=== PATIENT | male | born 1950 | race Caucasian/White ===

== ENCOUNTER → 2016-06-29 | Outpatient (CLI) | payer MEDICARE ==
--- NOTE | 2016-06-29 09:04 | RAD ---
EXAM DESCRIPTION: Shoulder,Right 2 or More Views CLINICAL HISTORY: 66 yearsMale, SHOULDER PAIN COMPARISON: None. IMPRESSION: 3 views of right shoulder demonstrate subtle osteophyte formation along the inferior margin of the humeral head and glenoid. This is compatible with early degenerative change. The acromio clavicular joint is unremarkable. No dislocation or fracture. Electronically signed by: Pablo Denis MD 06/29/2016 9:03 AM [facility]
== END | disposition home or self-care (01) ==
LOC: RAD 07:19
PROVIDERS: ATTEND Orthopaedic Surgery
DX: M25.511 Pain in right shoulder (principal)

== ENCOUNTER → 2016-07-06 | Outpatient (CLI) | payer MEDICARE ==
--- NOTE | 2016-07-06 09:48 | MRI ---
Study: MRI of the Right Shoulder. 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 Comparison: None. Findings: Severe AC joint osteoarthritis with undersurface spurring measuring up to 2 mm. Type II acromion without downsloping. Full-thickness, full with supination tendon tearing with involvement of the anterior half of the infraspinatus tendon. Torn articular and mid substance tendon fibers are medially retracted by up to 4 cm and lie at the level of the AC joint line. Torn bursal surface fibers are retracted by 2.7 cm and lie at the lateral margin of the acromion. Subscapularis tendinosis with intermediate grade articular tearing superiorly. Teres minor tendon intact. Cystic changes anterior greater tuberosity. Mild atrophy and grade 1/2 fatty infiltration supraspinatus and infraspinatus muscle bellies. Long head biceps tendon flattened at the intertubercular groove with slight medial subluxation on 2 the lesser tuberosity. Tendinosis and longitudinal fissuring without transection. Circumferential labral degeneration. Mild to moderate glenohumeral joint arthritis. Thickening and edema inferior glenohumeral ligament which can be seen with adhesive capsulitis. Impression: Retracted full-thickness, full width supraspinatus tendon tearing with involvement of the anterior half infraspinatus tendon. Subscapularis tendinosis with intermediate grade articular sided tearing superiorly. Mild atrophy and grade 1/2 fatty infiltration supraspinatus and infraspinatus muscle bellies. Long head biceps tendinosis and longitudinal fissuring with early medial subluxation as above. Circumferential labral degeneration. Mild to moderate glenohumeral joint osteoarthritis. Adhesive capsulitis. Severe AC joint osteoarthritis. Electronically signed by: José Hamilton MD 07/06/2016 9:47 AM CDT
== END | disposition home or self-care (01) ==
LOC: MRI 08:00
PROVIDERS: ATTEND Orthopaedic Surgery
DX: M75.101 Unspecified rotator cuff tear or rupture of right shoulder, not specified as traumatic (principal)

== ENCOUNTER → 2016-12-11 | Outpatient (CLI) | payer MEDICARE | END | disposition home or self-care (01) | LOC: GMAJ 10:24 | PROVIDERS: ATTEND Family Medicine | DX: Z12.5 Encounter for screening for malignant neoplasm of prostate (principal) ==

== ENCOUNTER 2017-01-05 15:06 | Emergency (ER) | payer MEDICARE ==
--- NOTE | 2017-01-05 15:38 | ED.PDOC ---
History of Present Illness - General Chief Complaint: Abdominal Pain Stated Complaint: Diverticulitis flare Time Seen by Provider: 01/05/17 15:12 Information Source: patient, RN notes reviewed, Vital Signs reviewed Exam Limitations: no limitations - History of Present Illness Initial Comments: Patient comes in with c/o lower abdominal pain for the past 3-4 days. Feels the same as when he has had diverticulitis in the past. Pain is crampy and occasionally sharp, 6/10. No nausea or vomiting. Did have some diarrhea but now is "stopped up". + chills, no fever. Abdominal Pain Onset Location: RLQ, LLQ Pain Radiation: no radiation Quality: moderate, cramping, sharpness Timing/Duration: days - 3-4 Improving Factors: medication - Ibuprofen helps but goes away too quickly Worsening Factors: other - being upright Associated Symptoms: diarrhea, fever/chills Review of Systems - Review of Systems Constitutional: States: chills. Denies: fever, malaise Respiratory: States: no symptoms reported Cardiology: States: no symptoms reported Gastrointestinal/Abdominal: States: see HPI, abdominal pain, constipation, diarrhea. Denies: nausea, vomiting Musculoskeletal: States: no symptoms reported Skin: States: no symptoms reported Neurological: States: no symptoms reported Past Medical History (General) - Patient Medical History Hx Seizures: No Hx Stroke: No Hx Dementia: No Hx Asthma: No Hx of COPD: Yes Hx Cardiac Disorders: No Hx Congestive Heart Failure: No Hx Pacemaker: No Hx Hypertension: Yes Hx Thyroid Disease: No Hx Diabetes: No Hx Gastroesophageal Reflux: No Hx Renal Disease: No Hx Cancer: No Hx of HIV: No Hx Hepatitis C: No Hx MRSA: No - Vaccination History Hx Tetanus, Diphtheria Vaccination: No Hx Influenza Vaccination: Yes Hx Pneumococcal Vaccination: Yes - Social History Hx Tobacco Use: Yes Hx Chewing Tobacco Use: Yes Hx Alcohol Use: No Hx Substance Use: No Hx Substance Use Treatment: No Hx Depression: No Hx Physical Abuse: No Hx Emotional Abuse: No Hx Suspected Abuse: No Family Medical History - Family History Mother Family History: No Known Living Status: Cause of : heart failure Physical Exam - Physical Exam General Appearance: Alert, Comfortable, No apparent distress, Well Developed, Well Groomed, Well Hydrated, Well Nourished Neck: supple, normal inspection Respiratory: lungs clear, normal breath sounds, no respiratory distress, no accessory muscle use Cardiovascular/Chest: regular rate, rhythm, no gallop, no murmur Gastrointestinal/Abdominal: normal bowel sounds, soft, tenderness - RLQ and suprapubic w/o guarding or rebound Extremity: normal inspection Neurologic: alert, normal mood/affect, oriented x 3 Skin Exam: normal color, warm/dry Progress - Progress Progress: 01/05/17 17:27 Feeling better. Antibiotics infusing. Na is a little low @ 127. After IV antibiotics with give a saline bolus. - Results/Orders Results/Orders: Laboratory Tests 01/05/17 01/05/17 16:02 16:02 WBC 8.1 RBC 4.48 L Hgb 14.2 Hct 41.7 L MCV 93.1 MCH 31.6 H MCHC 34.0 RDW 12.7 Plt Count 266 MPV 7.5 Absolute Neuts (auto) 5.50 Absolute Lymphs (auto) 1.30 Absolute Monos (auto) 0.90 H Absolute Eos (auto) 0.30 Absolute Basos (auto) 0.10 Neutrophils % 67.3 Lymphocytes % 16.6 L Monocytes % 11.5 H Eosinophils % 3.3 Basophils % 1.3 Sodium 127 L Potassium 3.9 Chloride 94 L Carbon Dioxide 23 Anion Gap 13.9 BUN 11 Creatinine 0.69 BUN/Creatinine Ratio 15.9 Random Glucose 95 Serum Osmolality 254.4 L* Calcium 9.0 Total Bilirubin 0.3 AST 17 ALT 18 Alkaline Phosphatase 76 Serum Total Protein 7.9 Albumin 4.1 Globulin 3.8 H Albumin/Globulin Ratio 1.1 Departure - Departure Clinical Impression: Acute diverticulitis Time of Disposition: 18:21 Disposition: Discharge to Home or Self Care Condition: Good Departure Forms: ED Discharge - Pt. Copy, Patient Portal Self Enrollment Instructions: DI for Diverticulitis Diet: resume usual diet Activity: increase activity as tolerated Referrals: Kenroy Hernandez MD [Primary Care Provider] - 1-2 Weeks Prescriptions: Ciprofloxacin [Cipro] 500 mg PO BID #14 tab metroNIDAZOLE [Flagyl] 500 mg PO BID #14 tab Home Medications: Ambulatory Orders Albuterol Sulfate 0.083 % INH Q4H PRN 09/03/12 Lisinopril/Hctz 20-12.5 mg [Zestoretic 20-12.5 mg] 1 ea PO DAILY 09/03/12 Albuterol Sulfate [Proair Hfa] 2 puff IN PRN PRN 09/26/15 Arformoterol Tartrate [Brovana] 15 mcg IN BID 09/26/15 Bifidobacterium Infantis [Align] 4 mg PO DAILY 09/26/15 Polyethylene Glycol 3350 [Miralax] 17 gm PO DAILY 09/26/15 Tiotropium [place] Monohydrate [Spiriva Respimat] 1 puff IN DAILY 09/26/15 Wheat Dextrin [Benefiber] 1 tab PO DAILY 09/26/15 raNITIdine HCL [Zantac] 150 mg PO DAILY 09/26/15 Ciprofloxacin [Cipro] 500 mg PO BID #20 tab 01/06/16 Metronidazole 500 mg PO Q8H #30 tab 01/06/16 Ciprofloxacin [Cipro] 500 mg PO BID #14 tab 01/05/17 metroNIDAZOLE [Flagyl] 500 mg PO BID #14 tab 01/05/17
[2017-01-05] MEDS ORDERED: KETOROLAC TROMETHAMINE INJ 30 MG/ML VIAL IV ONE (15:43)
[2017-01-05] MEDS ORDERED: levoFLOXacin 500MG IV 500 MG in PREMIX BAG 1 BAG IVPB ONE (15:43)
[2017-01-05] MEDS ORDERED: metroNIDAZOLE IV PREMIX 500MG 500 MG in PREMIX BAG 1 BAG IVPB ONE (15:43)
[2017-01-05] MEDS ORDERED: metroNIDAZOLE IV PREMIX 500MG 100 ML IVPB ONE (16:02)
[2017-01-05] MEDS ORDERED: levoFLOXacin 500MG IV 100 ML IVPB ONE (16:02)
[2017-01-05 17:06] VITALS: TEMP 98.7; O2SAT 94
[2017-01-05] MEDS ORDERED: SODIUM CHLORIDE 0.9% 1000ML 1,000 ML IVS ONE (17:32)
[2017-01-05 18:25] VITALS: BP 139/81
[2017-01-06] MEDS ORDERED: SODIUM CHLORIDE 0.9% 1000ML 1,000 ML ONE (09:21)
== END 2017-01-05 18:37 | disposition home or self-care (01) ==
LOC: ER 15:06
DX: K57.92 Diverticulitis of intestine, part unspecified, without perforation or abscess without bleeding (principal); J44.9 Chronic obstructive pulmonary disease, unspecified; Z87.891 Personal history of nicotine dependence
CPT/HCPCS: 36415; 80053; 85025; J1885; J1956; J3490

== ENCOUNTER → 2017-01-23 | Outpatient (CLI) | payer MEDICARE ==
--- NOTE | 2017-01-24 17:20 | US ---
EXAM DESCRIPTION: Carotid Duplex: Ultrasound CLINICAL HISTORY: CAROTID BRUIT COMPARISON: None. TECHNIQUE: Transcutaneous scanning utilizing 2-dimensional and Doppler modes to evaluate the bilateral carotid systems and vertebral arteries. Percentage of diameter of stenosis or no stenosis recorded will be based upon NASCET criteria. FINDINGS: Peak systolic/end diastolic (CM-Sec) CCA Right 66/10 Left 82/21. ICA Right proximal 57/21, distal 74/24. Left proximal 38/12, Distal 67/22. Vertebral Right 44/10 Left 39/10. ECA (PS Only) Right 64 left 61. ICA/CCA peak systolic ratio: Right 1.1 Left 0.8 ICA/CCA end diastolic ratio: Right 2.5 Left 1.0 Vertebral arteries: antegrade flow. Comments Comments: Prominent atherosclerotic calcifications in the bilateral common carotid bulbs and proximal ICAs. Area stenosis of the right CCA bulb is 41% with diameter stenosis identical. Area stenosis of the right proximal ICA 54% with diameter stenosis 36%. Area stenosis of left CCA bulb 34% with diameter stenosis 51%. Area stenosis of the proximal left ICA 20% with identical diameter stenosis. IMPRESSION: 1. Doppler evaluation of the bilateral carotid systems and vertebral arteries shows no hemodynamically significant stenoses. 2. Moderate amount of calcified plaque seen in the carotid arteries bilaterally. Bilateral vertebral arteries showed antegrade-cephalad flow. Electronically signed by: Bola Garcia MD 01/24/2017 5:19 PM CDT
== END | disposition home or self-care (01) ==
LOC: US 08:49
PROVIDERS: ATTEND Family Medicine
DX: I65.23 Occlusion and stenosis of bilateral carotid arteries (principal)

== ENCOUNTER 2017-08-15 16:12 | Inpatient (IN) | payer MEDICARE ==
--- NOTE | 2017-08-15 16:13 | HP ---
SUPERVISING PHYSICIAN: Kenroy Hernandez M.D. CHIEF COMPLAINT: Shortness of breath. HISTORY OF PRESENT ILLNESS: This is a 67 year-old male patient who has had approximately 5 days of increased shortness of breath. He has end stage chronic obstructive pulmonary disease on chronic oxygen. He was seeing his primary care physician, Dr. Hernandez, in clinic. During his office visit he was visibly tachypneic. His heart rate was 112, respiratory rate 24 to 28. His O2 sat was 90% on 3 liters nasal cannula. Due to his end stage COPD and acute exacerbation, I was called for direct admission for aggressive treatment for COPD exacerbation. CBC at the clinic showed WBCs of 7.8 with hemoglobin 14.4, hematocrit 39. Chest x-ray showed emphysematous lungs. PAST MEDICAL HISTORY: 1. End stage chronic obstructive pulmonary disease, oxygen dependent at home. 2. Hypertension. 3. Diverticulitis. 4. Anxiety and depression. PAST SURGICAL HISTORY: 1. Appendectomy. 2. Cholecystectomy. 3. Open reduction and internal fixation of the left elbow. 4. Umbilical hernia repair. 5. Tonsillectomy and adenoidectomy. OUTPATIENT MEDICATIONS: 1. Spiriva. 2. Aspirin. 3. Lipitor. 4. Lisinopril Hydrochlorothiazide. 5. Brovana. 6. MiraLAX. 7. Align. 8. Alprazolam. 9. Albuterol neb treatments. ALLERGIES: MORPHINE SULFATE. FAMILY HISTORY: Positive for coronary artery disease, heart disease and rheumatic heart disease. SOCIAL HISTORY: He is retired. He is . He has 3 children. He smokes approximately 1 pack of cigarettes per day. He previously smoked 2 packs per day and has an 80+ pack year smoking history. He drinks approximately a 6 pack of beer daily, although he has not had any beer in the last 2 days. He denies any illicit drug use. REVIEW OF SYSTEMS: Positive for fatigue. Negative for fever or weight changes. HEENT: Positive for seasonal allergies and rhinorrhea. Negative for vision changes, ear pain or sore throat. RESPIRATORY: Positive for coughing, wheezing, shortness of breath. His dyspnea is even at rest. CARDIOVASCULAR: Negative for chest pain, palpitations or tachycardia. GASTROINTESTINAL: Negative for abdominal pain, nausea, vomiting, diarrhea or constipation. GENITOURINARY: Negative for hematuria, dysuria or polyuria. SKIN: Negative for lesions or rashes. NEUROLOGIC: Negative for dizziness, headaches or seizures. PHYSICAL EXAMINATION: VITAL SIGNS: Temperature 97.5, heart rate 100, blood pressure 109/77, respiratory rate 22, O2 sat is 96% on 3 liters nasal cannula. GENERAL: This is a 67 year-old male patient who is sitting up in his hospital bed. He is in moderate respiratory distress. HEENT: Normocephalic and atraumatic. Pupils are equal and reactive. Oropharynx is clear. Oral mucous membranes are moist. RESPIRATORY: He is tachypneic. He has retractions with coarse breath sounds in the apices. Decreased breath sounds throughout and an expiratory wheeze in the right upper lobe. CARDIOVASCULAR: Regular to tachycardic rate, regular rhythm. GASTROINTESTINAL: Abdomen is soft, nondistended, non-tender. Bowel sounds are positive. EXTREMITIES: No cyanosis, clubbing or edema. NEUROLOGIC: He is awake, alert and oriented times three. LABORATORY: CBC is as per the History of Present Illness. His lab in the hospital is sodium 120, potassium 4.1, chloride 83, carbon dioxide 27, BUN 10, creatinine 0.55. Serum osmolality 241.3, magnesium 2. Liver enzymes are negative. All other labs and films have been reviewed via the EMR. ASSESSMENT: 1. End stage chronic obstructive pulmonary disease with acute exacerbation, with a respiratory rate of 24, heart rate 112 and O2 sat 90% on 3 liters nasal cannula while at his primary care physician's office today. He is oxygen dependent at home and he is a chronic smoker. 2. Hyponatremia. 3. Hypochloridemia. 4. Hypertension. 5. Tobacco abuse, 2 packs daily for approximately 40 years. He has decreased it to 1 pack a day in the last several years. 6. Chronic ETOH use. 7. Anxiety and depression. PLAN: Will admit the patient for exacerbation of chronic obstructive pulmonary disease. I have restarted his home medications. He will have p.r.n. and scheduled breathing treatments. I have given him some IV steroids and will taper those as he responds to treatment. He is also started on Rocephin as well as some Mucinex. I have gotten a blood culture and a sputum culture as well as a chest x-ray and lab in the morning. Will do aggressive pulmonary hygiene. I also started him on a PPI for ulcer prophylaxis and Lovenox for DVT prophylaxis. I have also started him on fluid restrictions. We had a long discussion about smoking cessation and have encouraged him strongly to quit. Otherwise we will continue to monitor the patient closely and follow as needed. #[id number] [facility]
[2017-08-15] MEDS ORDERED: ALBUTEROL SULFATE 2.5 MG/3 ML VIAL NEB PRN (17:35)
[2017-08-15] MEDS ORDERED: methylPREDNISolone SODIUM SUC 125 MG/2 ML VIAL IV ONE (17:38)
[2017-08-15] MEDS ORDERED: PANTOPRAZOLE SODIUM IV 40 MG VIAL IV SCH (18:00)
[2017-08-15] MEDS ORDERED: ENOXAPARIN SODIUM 40 MG/0.4 ML SYG SUBCU SCH (18:00)
[2017-08-15] MEDS ORDERED: SODIUM CHL 0.9% 50ML MIN-BAG+ 50 ML IVPB ONE (18:13)
[2017-08-15] MEDS ORDERED: cefTRIAXone SODIUM 1 GM VIAL ONE (18:13)
[2017-08-15] MEDS: SODIUM CHLORIDE 0.9% 1000ML 1,000 ML IVS PRN (18:17)
[2017-08-15] MEDS: IV SET AND CAP CHANGE INJ INJ SCH (18:18)
[2017-08-15] MEDS: cefTRIAXone SODIUM 1 GM in SODIUM CHL 0.9% 50ML MIN-BAG+ 50 ML IVPB SCH (18:19)
[2017-08-15] MEDS ORDERED: ALPRAZolam 0.25 MG TAB PO PRN (19:13)
[2017-08-15] MEDS ORDERED: ARFORMOTEROL TARTRATE 15 MCG/2 ML NEB NEB ONE (19:14)
[2017-08-15] MEDS: ARFORMOTEROL TARTRATE 15 MCG/2 ML NEB NEB SCH (20:00)
[2017-08-15] MEDS: guaiFENesin ER TAB 600 MG TAB PO SCH (21:02)
[2017-08-15] MEDS: ATORVASTATIN 10 MG TAB PO SCH (21:02)
[2017-08-15] MEDS: SODIUM CHLORIDE 0.9% (FLUSH) 10 ML SYG IV SCH (21:05)
[2017-08-15] MEDS: TEMAZEPAM 15 MG CAP PO PRN (21:09)
[2017-08-15] MEDS: IPRATROPIUM/ALBUTEROL 3 ML VIAL INH SCH (21:12)
[2017-08-16] MEDS: SODIUM CHLORIDE 0.9% 1000ML 1,000 ML IVS PRN ×3 (02:52→18:47)
[2017-08-16] MEDS: methylPREDNISolone SODIUM SUC 125 MG/2 ML VIAL IV SCH ×2 (06:16→13:37)
--- NOTE | 2017-08-16 07:00 | RAD ---
Chest 2 view on 08/16/2017 CLINICAL INDICATION: COPD COMPARISON: 08/15/2017 FINDINGS: Emphysematous changes of the lungs are noted. Vascular calcification is noted in the aorta. The lungs are otherwise clear. Cardiac, hilar and mediastinal contours are within normal limits. Pulmonary vascularity is within normal limits. IMPRESSION: Emphysema with no acute disease. Electronically signed by: Ernie Garibay 08/16/2017 6:59 AM CDT
[2017-08-16] MEDS: IPRATROPIUM/ALBUTEROL 3 ML VIAL INH SCH ×4 (07:13→20:00)
[2017-08-16] MEDS ORDERED: ENOXAPARIN SODIUM 40 MG/0.4 ML SYG SUBCU ONE (08:02)
[2017-08-16] MEDS ORDERED: cefTRIAXone SODIUM 1 GM VIAL ONE (08:08)
[2017-08-16] MEDS ORDERED: SODIUM CHL 0.9% 50ML MIN-BAG+ 50 ML IVPB ONE (08:08)
[2017-08-16] MEDS: ARFORMOTEROL TARTRATE 15 MCG/2 ML NEB NEB SCH ×2 (08:17→20:00)
[2017-08-16] MEDS: ASPIRIN (CHEWABLE) 81 MG TAB PO SCH (08:34)
[2017-08-16] MEDS: POLYETHYLENE GLYCOL 3350 17 GM PCKT PO SCH (08:34)
[2017-08-16] MEDS: guaiFENesin ER TAB 600 MG TAB PO SCH ×2 (08:34→21:22)
[2017-08-16] MEDS: SODIUM CHLORIDE 0.9% (FLUSH) 10 ML SYG IV SCH (08:35)
[2017-08-16] MEDS: NON-FORMULARY MEDICATION 1 EA MIS (Tiotropium Bromide Monohydrate [Spiriva Respimat] 2 PUF INH SCH (08:37)
[2017-08-16] MEDS ORDERED: LISINOPRIL PO SCH (09:00)
[2017-08-16] MEDS ORDERED: [UNRECOGNIZED DRUG - OTHER] PO SCH (09:00)
[2017-08-16] MEDS ORDERED: HYDROCHLOROTHIAZIDE PO SCH (09:00)
[2017-08-16] MEDS ORDERED: LISINOPRIL PO PRN (15:16)
[2017-08-16] MEDS ORDERED: HYDROCHLOROTHIAZIDE PO PRN (15:16)
[2017-08-16] MEDS ORDERED: [UNRECOGNIZED DRUG - OTHER] PO PRN (15:16)
[2017-08-16] MEDS: cefTRIAXone SODIUM 1 GM in SODIUM CHL 0.9% 50ML MIN-BAG+ 50 ML IVPB SCH (17:52)
--- NOTE | 2017-08-16 20:37 | PN ---
DATE: 08/16/17 SUPERVISING PHYSICIAN: Kenroy Hernandez M.D. SUBJECTIVE: The patient is sitting up in his hospital bed watching television. He feels much improved yesterday, much less shortness of breath with some coughing. He still gets short of breath but that is not unusual for him. Again , we discussed smoking cessation and he is willing to try it this time. OBJECTIVE: VITAL SIGNS: He is afebrile, heart rate 102, blood pressure 148/72, respiratory rate 20, O2 sat is 96% on 2 liters nasal cannula. RESPIRATORY: Diminished breath sounds throughout. He does have a few expiratory wheezing in the apices but much improved since yesterday. CARDIAC: Regular to tachycardic rate, regular rhythm. NEUROLOGIC: He is awake, alert and oriented times three. LABORATORY: Sodium has improved to 123 with potassium 4.3, chloride 89, carbon dioxide 25, anion gap 13.3 with BUN 10, creatinine 0.58, glucose 134, serum osmolality 248.8. Liver enzymes are within normal limits. WBCs are 3.6 with hemoglobin 14.2, hematocrit 40.5, neutrophils 82.3%. Chest x-ray shows emphysematous lungs. All other labs and films have been reviewed via the EMR. ASSESSMENT: 1. End stage chronic obstructive pulmonary disease with acute exacerbation. He is hypercapnic and on admission he had a respiratory rate of 24, heart rate of 112, O2 sat of 90% on 3 liters nasal cannula. He is oxygen dependent and is a chronic smoker. 2. Hyponatremia that has slightly improved. 3. Hypochloridemia that has slightly improved. 4. Hypertension. 5. Tobacco abuse, 80+ pack year history. Smokes approximately 1 pack of cigarettes per day in the last several years. 6. Chronic ETOH use. 7. Anxiety and depression. PLAN: We will continue present supportive care. I will order some routine labs in the morning. I have decreased his IV steroids. Will continue his Rocephin. His IV fluids have been discontinued. Again, encourage smoking cessation as well as good pulmonary hygiene. We will continue to monitor the patient closely and follow as needed. Dr. Hernandez is the collaborating physician available for consultation. #[id number] [facility]
[2017-08-16] MEDS: ATORVASTATIN 10 MG TAB PO SCH (21:22)
[2017-08-16] MEDS: ENOXAPARIN SODIUM 40 MG/0.4 ML SYG SUBCU SCH (21:22)
[2017-08-16] MEDS: TEMAZEPAM 15 MG CAP PO PRN (21:22)
[2017-08-16] MEDS: methylPREDNISolone SODIUM SUC 40 MG/ML VIAL IV SCH (22:08)
[2017-08-17] MEDS: methylPREDNISolone SODIUM SUC 40 MG/ML VIAL IV SCH ×4 (06:04→23:59)
[2017-08-17] MEDS: NON-FORMULARY MEDICATION 1 EA MIS (Tiotropium Bromide Monohydrate [Spiriva Respimat] 2 PUF INH SCH (07:14)
[2017-08-17] MEDS: ARFORMOTEROL TARTRATE 15 MCG/2 ML NEB NEB SCH ×2 (07:14→20:25)
[2017-08-17] MEDS: IPRATROPIUM/ALBUTEROL 3 ML VIAL INH SCH ×4 (07:17→20:25)
[2017-08-17] MEDS: POLYETHYLENE GLYCOL 3350 17 GM PCKT PO SCH (09:13)
[2017-08-17] MEDS: guaiFENesin ER TAB 600 MG TAB PO SCH ×2 (09:13→21:06)
[2017-08-17] MEDS: ASPIRIN (CHEWABLE) 81 MG TAB PO SCH (09:13)
[2017-08-17] MEDS: LISINOPRIL 10 MG TAB PO SCH (12:59)
[2017-08-17] MEDS: hydroCHLOROthiazide 25 MG TAB PO SCH (12:59)
--- NOTE | 2017-08-17 16:58 | PN ---
DATE: 08/17/17 SUPERVISING PHYSICIAN: Nicko Tinsley M.D. SUBJECTIVE: The patient reports that he feels much better and had less work of breathing since admission. He had some issues with esophageal spasms after lunch and had some shortness of breath related to this. He has reported no chest pains. Has remained afebrile. OBJECTIVE: VITAL SIGNS: Temperature 97.6, pulse 94, blood pressure 159/77, respirations 20, satting 99% on nasal cannula at 2 liters at rest. I's and O's show a negative balance of 280 with 3145 in, 3425 out. Weight is 80.1 kg. CHEST: Lung sounds are significantly decreased throughout all portillo with slight expiratory wheezing noted. No rales or rhonchi. HEART: Regular rate and rhythm. ABDOMEN: Soft, non-tender. Positive bowel sounds. NEUROLOGIC: He is alert and oriented times three. LABORATORY: White count 7,200, hemoglobin 12.7, hematocrit 35.8, platelet count 266,000. Differential does show a slight left shift. Chemistries today show a persistent hyponatremia but improving at 129, potassium 4.2, BUN 13, creatinine 0.67, blood sugar 123, magnesium 2.1, calcium 8.8. MICROBIOLOGY: Blood cultures remain negative at 24 hours. Sputum culture showed normal traci at 24 hours. RADIOLOGY: No additional radiographic studies were completed today. ASSESSMENT: 1. End stage chronic obstructive pulmonary disease with an acute exacerbation requiring corticosteroids and aggressive pulmonary hygiene. 2. Hyponatremia, improved probably secondary to Hydrochlorothiazide administration. 3. Hypochloridemia due to #1. 4. Hypertension, stable. 5. Tobacco abuse, 80+ pack year history, currently smoking 1 pack per day for the last several years. Again encouraged to stop smoking. 6. Chronic alcohol usage, encouraged to stop drinking. 7. Anxiety and depression. PLAN: Will continue with current plan of care except given that he continues to show decreased breath sounds throughout and is wheezing, I will increase his steroid regimen with the same dosing but decrease from every 8 hours to every 6 hours for another 24 hours. He remains on Rocephin but no obvious signs of pneumonia. He is saline locked. I discussed with him smoking cessation once again and offered nicotine patch as needed which he refuses at this point. Will anticipate at least 24 to 48 hours of continued aggressive management with pulmonary hygiene and corticosteroids. Until clinically stable, continue to monitor and treat appropriately. [facility][id number] [facility]
[2017-08-17] MEDS ORDERED: SODIUM CHL 0.9% 50ML MIN-BAG+ 50 ML IVPB ONE (17:31)
[2017-08-17] MEDS ORDERED: cefTRIAXone SODIUM 1 GM VIAL ONE (17:31)
[2017-08-17] MEDS: cefTRIAXone SODIUM 1 GM in SODIUM CHL 0.9% 50ML MIN-BAG+ 50 ML IVPB SCH (17:36)
[2017-08-17] MEDS: TEMAZEPAM 15 MG CAP PO PRN (21:06)
[2017-08-17] MEDS: ATORVASTATIN 10 MG TAB PO SCH (21:06)
[2017-08-17] MEDS: ENOXAPARIN SODIUM 40 MG/0.4 ML SYG SUBCU SCH (21:07)
[2017-08-17] MEDS: SODIUM CHLORIDE 0.9% (FLUSH) 10 ML SYG IV PRN ×2 (21:07→23:59)
[2017-08-18] MEDS: SODIUM CHLORIDE 0.9% (FLUSH) 10 ML SYG IV PRN ×2 (06:22→20:39)
[2017-08-18] MEDS: methylPREDNISolone SODIUM SUC 40 MG/ML VIAL IV SCH ×3 (06:23→20:40)
[2017-08-18] MEDS: ARFORMOTEROL TARTRATE 15 MCG/2 ML NEB NEB SCH ×2 (08:20→20:00)
[2017-08-18] MEDS: NON-FORMULARY MEDICATION 1 EA MIS (Tiotropium Bromide Monohydrate [Spiriva Respimat] 2 PUF INH SCH (08:21)
[2017-08-18] MEDS: IPRATROPIUM/ALBUTEROL 3 ML VIAL INH SCH ×4 (08:21→20:00)
[2017-08-18] MEDS: hydroCHLOROthiazide 25 MG TAB PO SCH (08:31)
[2017-08-18] MEDS: LISINOPRIL 10 MG TAB PO SCH (08:31)
[2017-08-18] MEDS: guaiFENesin ER TAB 600 MG TAB PO SCH ×2 (08:31→20:39)
[2017-08-18] MEDS: ASPIRIN (CHEWABLE) 81 MG TAB PO SCH (08:32)
[2017-08-18] MEDS: POLYETHYLENE GLYCOL 3350 17 GM PCKT PO SCH (08:32)
[2017-08-18] MEDS ORDERED: cefTRIAXone SODIUM 1 GM VIAL ONE (16:09)
[2017-08-18] MEDS ORDERED: SODIUM CHL 0.9% 50ML MIN-BAG+ 50 ML IVPB ONE (16:09)
--- NOTE | 2017-08-18 17:11 | PN ---
DATE: 08/18/17 SUPERVISING PHYSICIAN: Nicko Tinsley M.D. SUBJECTIVE: The patient feels about 75% back to baseline respiratory status. He remains afebrile. Continues with a cough that is nonproductive. OBJECTIVE: VITAL SIGNS: Afebrile with temperature 97.5, pulse 89, blood pressure 157/83, respirations 16, satting 97% on nasal cannula at rest. I's and O's show a negative balance of 1092 with 108 in, 1200 out. Weight is 80.2 kg. CHEST: Lung sounds continue to be diminished throughout but much better in comparison to yesterday with no obvious continued wheezing, rales or rhonchi. HEART: Regular rate and rhythm. ABDOMEN: Soft, non-tender. Positive bowel sounds. NEUROLOGIC: He is alert and oriented times three. LABORATORY: White count today 7,200, hemoglobin 13.5, hematocrit 34.4, platelet count 229,000. Differential shows a mild left shift. Chemistries show improved sodium of 130 with potassium 3.9, BUN 15, creatinine 0.46, glucose 119, calcium 9.2. Serum osmolality is up to 262. MICROBIOLOGY: Blood cultures remain negative at 48 hours. Sputum culture showed normal traci at 48 hours as finalized. RADIOLOGY: No additional radiographic studies today. ASSESSMENT: 1. End stage chronic obstructive pulmonary disease with an acute exacerbation requiring corticosteroids and aggressive pulmonary hygiene with patient showing slow clinical improvement. 2. Hyponatremia, improving, likely chronic due to Hydrochlorothiazide administration. 3. Hypertension, stable. 4. Tobacco abuse, 80+ pack year history, currently smoking 1 pack per day for the last several years. He is again encouraged to stop smoking. 5. Chronic alcohol usage, encouraged to stop drinking. 6. Anxiety and depression. PLAN: As the patient is showing some clinical response, will continue with current plan at this point with steroids with change in regimen to every 12 hours with anticipation of changing him to p.o. medications in the morning if clinically stable. Will continue with Rocephin but he has no obvious signs of pneumonia. Continue to monitor and manage as needed. Again, he has been encouraged to stop smoking. Will anticipate hopefully being able to discharge tomorrow. Until then, continue to monitor and treat appropriately. #[id number] [facility]
[2017-08-18] MEDS: cefTRIAXone SODIUM 1 GM in SODIUM CHL 0.9% 50ML MIN-BAG+ 50 ML IVPB SCH (17:40)
[2017-08-18] MEDS: IV SET AND CAP CHANGE INJ INJ SCH (17:40)
[2017-08-18] MEDS: ATORVASTATIN 10 MG TAB PO SCH (20:39)
[2017-08-18] MEDS: ENOXAPARIN SODIUM 40 MG/0.4 ML SYG SUBCU SCH (20:39)
[2017-08-18] MEDS: TEMAZEPAM 15 MG CAP PO PRN (21:22)
[2017-08-19 06:43] VITALS: O2SAT 96
[2017-08-19] MEDS ORDERED: predniSONE 20 MG TAB ONE (06:58)
[2017-08-19] MEDS: POLYETHYLENE GLYCOL 3350 17 GM PCKT PO SCH (08:24)
[2017-08-19] MEDS: hydroCHLOROthiazide 25 MG TAB PO SCH (08:25)
[2017-08-19] MEDS: guaiFENesin ER TAB 600 MG TAB PO SCH (08:25)
[2017-08-19] MEDS: LISINOPRIL 10 MG TAB PO SCH (08:25)
[2017-08-19] MEDS: ASPIRIN (CHEWABLE) 81 MG TAB PO SCH (08:25)
[2017-08-19] MEDS: ARFORMOTEROL TARTRATE 15 MCG/2 ML NEB NEB SCH (08:37)
[2017-08-19] MEDS: IPRATROPIUM/ALBUTEROL 3 ML VIAL INH SCH (08:37)
[2017-08-19] MEDS: NON-FORMULARY MEDICATION 1 EA MIS (Tiotropium Bromide Monohydrate [Spiriva Respimat] 2 PUF INH SCH (08:38)
[2017-08-19] MEDS ORDERED: SODIUM CHLORIDE 0.9% (FLUSH) 10 ML SYG IV SCH (09:00)
[2017-08-19] MEDS ORDERED: predniSONE 20 MG TAB PO SCH (09:00)
[2017-08-19 10:20] VITALS: BP 125/80; TEMP 98
--- NOTE | 2017-08-26 09:56 | DS ---
SUPERVISING PHYSICIAN: Sunny Abarca MD DISCHARGE DIAGNOSES: 1. End stage chronic obstructive pulmonary disease with acute exacerbation requiring aggressive corticosteroids administration along with pulmonary hygiene with patient showing slow clinical improvement.. 2. Hyponatremia likely chronic from Hydrochlorothiazide administration showing to be improving.. 3. Hypertension. 4. Tobacco abuse, 80+ pack year history. Smokes approximately 1 pack of per day for the last several years, again encouraged to stop smoking. 5. Chronic alcohol use, encouraged to stop drinking. . 6. Anxiety and depression. REASON FOS HOSPITALIZATION: Laya Wiley is a 67 year-old male patient who has had approximately 5 days of increased shortness of breath. He has end-stage chronic obstructive pulmonary disease and a patient with chronic oxygen needs. He was seeing his primary care physician, Dr. Hernandez, on the date of admission. While in his office he was visibly tachypneic. His heart rate was 112, respiratory rate 20 to 28. His O2 saturation showing 90% on 3 liters nasal cannula. Due to his end-stage chronic obstructive pulmonary disease and acute exacerbation, he was sent to the hospital for direct admission for for aggressive treatment for chronic obstructive pulmonary disease exacerbation. His initial workup in the clinic showed white count of 7.8. Chest x-ray showed emphysematous changes. He was admitted in stable condition. LABORATORY STUDIES: White count on admission was 3,600 with hemoglobin of 14.2 and hematocrit 40.5. On discharge, white count was 7,200, hemoglobin 13.5 and hematocrit 38.4 with a platelet count of 229,000, differential did show a left shift. Blood gas analysis on admission showed a pH of 7.36, PCO2 of 54, PO2 of 85, bicarb 29, saturation 98% on 3-liter nasal cannula at rest. Chemistries showed a significant hyponatremia on admission of 120. After treatment and prior to discharge, it normalized to baseline of 128. Potassium normal at 3.8. Renal function showed BUN of 16. At discharge, creatinine of 0.5. Serum osmolality on admission was low at 241, prior to discharge had gone up to 259 to 262. Calcium was normal at 9.1, magnesium normal at 2.1. Liver functions all within normal limits. MICROBIOLOGY: Sputum culture showed normal traci at 48 hours. Blood cultures remained negative at 5 days. RADIOLOGY: Chest x-ray on admission and per radiology interpretation showed emphysema with no acute disease. HOSPITAL COURSE: Mr. Cristina was admitted on 08/15/17 directly fro the clinic as noted above for exacerbation of his chronic obstructive pulmonary disease. He was initiated on aggressive pulmonary hygiene along with aggressive medication regiment to include q.i.d. Duoneb treatment as well as Solu-Medrol and started on Rocephin. He was slowly titrated off of the IV Solu- Medrol to a p.o. dose prior to discharge and was showing to improvement and back to near baseline respiratory status prior to discharge. I did discuss with him his end-state disease process and recommended he consider a hospice consultation which he was in agreement to. On day of discharge the patient was showing to be clinically stable, on 02 that he normally wears and p.o. prednisone. Therefore, he was discharged to have continuation of his treatment in an outpatient setting. PLAN: Mr. Cristina was discharged with instructions to followup with Dr. Hernandez the in 7 to 10 days. He was to resume his home medications as instructed and take all new medications as directed. He was once again encouraged to stop smoking and decrease his alcohol consumption. He was told to utilize his oxygen as previous and warned not to wear his oxygen when he was smoking. He was instructed to return to the hospital should he have worsening of symptoms. Discharge diet: regular as tolerated. Activities: Increase as tolerated. Medications at discharge include: 1. Cefdinir 300 mg twice a day, #12. 2. Prednisone taper 10 mg, 4 tablets for three days, 3 tablets for three days and 2 tablets until gone for a total of 25 tablets. 3. Restoril 15 mg as needed for insomnia, #10. I did discuss with him again his disease process being at end-stage chronic obstructive pulmonary disease in regards to hospice care which he is fully ready to do and will followup with Dr. Hernandez in regards to consultation with hospice care for end-stage chronic obstructive pulmonary disease. CONDITION ON DISCHARGE: Stable and improved. #[id number] [facility]
== END 2017-08-19 11:34 | disposition home or self-care (01) | DRG 191 ==
LOC: MS 16:12
PROVIDERS: ADMIT Nurse Practitioner Acute Care; ATTEND Nurse Practitioner Family
DX: J44.1 Chronic obstructive pulmonary disease with (acute) exacerbation (principal); E87.1 Hypo-osmolality and hyponatremia; I10 Essential (primary) hypertension; F41.9 Anxiety disorder, unspecified; F32.9 Major depressive disorder, single episode, unspecified; Z79.82 Long term (current) use of aspirin; Z88.5 Allergy status to narcotic agent; Z88.2 Allergy status to sulfonamides; F17.210 Nicotine dependence, cigarettes, uncomplicated; F10.20 Alcohol dependence, uncomplicated; Z99.81 Dependence on supplemental oxygen; E87.8 Other disorders of electrolyte and fluid balance, not elsewhere classified

== ENCOUNTER 2017-08-29 07:27 | Emergency (ER) | payer MEDICARE ==
[2017-08-29] MEDS ORDERED: HYDROcodone 5MG/APAP 325MG 1 EA TAB PO ONE (07:41)
[2017-08-29 07:44] VITALS: TEMP 97.3
--- NOTE | 2017-08-29 08:42 | RAD ---
EXAM DESCRIPTION: Chest,2 Views CLINICAL HISTORY: fall yesterday with left post lateral rib pain COMPARISON: Chest radiograph dated August 16, 2017 TECHNIQUE: PA/lateral FINDINGS: Cardiomediastinal silhouette and pulmonary vascularity are within normal limits. Lung volumes are hyperinflated, compatible COPD. Lungs are clear without focal consolidative infiltrates. Bilateral costophrenic angles are sharp. No pneumothorax. Mild degenerative changes of the thoracic spine. Mild prominence of the manubriosternal joint space. Otherwise, no radiographic evidence for displaced acute fractures of the visualized osseous structures of the thorax. IMPRESSION: 1. No radiographic evidence for acute cardiopulmonary process. 2. COPD. Electronically signed by: Ariel Horan MD 08/29/2017 8:40 AM CDT
--- NOTE | 2017-08-29 08:43 | RAD ---
EXAM DESCRIPTION: XR RIBS 2 VIEWS UNILATERAL CLINICAL HISTORY: fall yesterday with left post lateral rib pain COMPARISON: None FINDINGS: Left rib series was acquired. No acute displaced fracture demonstrated of the left ribs. Cardiac silhouette and pulmonary vascularity are within normal limits. Visualized lungs are clear. IMPRESSION: No radiographic evidence for acute displaced fracture of the imaged left ribs. Electronically signed by: Ariel Horan MD 08/29/2017 8:42 AM CDT
--- NOTE | 2017-08-29 09:08 | ED.PDOC ---
History of Present Illness - General Chief Complaint: Respiratory Problem Stated Complaint: shortness of breath,rib pain Time Seen by Provider: 08/29/17 07:39 Source: patient Exam Limitations: no limitations - History of Present Illness Initial Comments: the patient is a 67-year-old male presenting to the emergency room secondary to left-sided chest pain after a fall yesterday evening. The patient has a long-standing history of COPD and was just released recently for a COPD exacerbation from this hospital about 4 days ago. The patient has a long- standing history of orthostasis and syncopal and near syncopal episodes from this. Yesterday the patient woke up from a nap to his dog barking. His dog had the UPS man cornered and he jumped up to restrain the dog. As he was going back in the house in the kitchen he started to pass out and fell forward and hit the left anterior lateral chest on the kitchen counter and managed to somewhat lowered himself to the ground before passing out. He apparently woke a few minutes later. Since that time he has been having left lateral posterior chest pain with breathing and any movement of his chest or left shoulder. He is not having shoulder pain. No syncope or near syncope since. He does feel short of breath due to the pain. His oxygen saturations are 97% on room air. There is no crepitus around the wall of the chest. There is no bruising of the wall of the chest. No evidence of any muscle tear. He is exquisitely tender to palpation over the lateral border of the left latissimus dorsi muscle. He is moderately uncomfortable to palpation over the anterior chest wall where he had the counter. Breath sounds are symmetrical and he is not having any difficulty breathing moving air. Lungs are clear. He does get obvious muscle spasm with taking deep breaths. No wheezes. He is alert and oriented and fairly anxious. He is obviously uncomfortable. Timing/Duration: 24 hours Severity: moderate Improving Factors: immobilization Worsening Factors: movement Associated Symptoms: chest pain, shortness of breath Allergies/Adverse Reactions: Allergies Morphine Adverse Reaction (Verified 08/15/17 16:42) Home Medications: Ambulatory Orders Lisinopril/Hctz 20-12.5 mg [Zestoretic 20-12.5 mg] 2 tablet PO DAILY 09/03/12 ALPRAZolam [Xanax] 0.25 mg PO DAILY PRN 08/15/17 Albuterol Sulfate Nebs [Proventil Nebs] 2.5 mg INH Q4HR PRN 08/15/17 Arformoterol Tartrate [Brovana] 15 mcg IN BID 08/15/17 Aspirin [Aspirin Childrens] 81 mg PO DAILY 08/15/17 Atorvastatin Calcium [Lipitor] 10 mg PO BEDTIME 08/15/17 Polyethylene Glycol 3350 [Miralax] 17 gm PO DAILY 08/15/17 Tiotropium Sweeny Monohydrate [Spiriva Respimat] 2 puff IN DAILY 08/15/17 Temazepam [Restoril] 15 mg PO BEDTIME PRN #10 cap 08/19/17 Tramadol HCl 50 mg PO Q6HR PRN #30 tab 08/29/17 Review of Systems - Review of Systems Constitutional: States: no symptoms reported EENTM: States: no symptoms reported Respiratory: States: see HPI Cardiology: States: see HPI Gastrointestinal/Abdominal: States: no symptoms reported Genitourinary: States: no symptoms reported Musculoskeletal: States: no symptoms reported Skin: States: no symptoms reported Neurological: States: anxiety Endocrine: States: no symptoms reported All other Systems: No Change from Baseline Past Medical History (General) - Patient Medical History Hx Seizures: No Hx Stroke: No Hx Dementia: No Hx Asthma: No Hx of COPD: Yes Hx Cardiac Disorders: No Hx Congestive Heart Failure: No Hx Pacemaker: No Hx Hypertension: Yes Hx Thyroid Disease: No Hx Diabetes: No Hx Gastroesophageal Reflux: No Hx Renal Disease: No Hx Cancer: No Hx of HIV: No Hx Hepatitis C: No Hx MRSA: No Surgical History: appendectomy, cholecystectomy - Vaccination History Hx Tetanus, Diphtheria Vaccination: No Hx Influenza Vaccination: Yes Hx Pneumococcal Vaccination: Yes - Social History Hx Tobacco Use: Yes Hx Chewing Tobacco Use: Yes Hx Alcohol Use: No Hx Substance Use: No Hx Substance Use Treatment: No Hx Depression: No Hx Physical Abuse: No Hx Emotional Abuse: No Hx Suspected Abuse: No Family Medical History - Family History Mother Family History: No Known Living Status: Cause of : heart failure Physical Exam - Physical Exam General Appearance: Alert, Anxious, No apparent distress Eye Exam: bilateral normal Ears, Nose, Throat: hearing grossly normal, normal ENT inspection Neck: full range of motion, supple Respiratory: lungs clear, normal breath sounds, no respiratory distress, no accessory muscle use, other - see history of present illness Cardiovascular/Chest: normal peripheral pulses, no edema, other - ild tachycardia but the patient is in significant discomfort Peripheral Pulses: radial,right: 2+, radial,left: 2+, dorsalis pedis,right: 2+, dorsalis pedis,left: 2+ Gastrointestinal/Abdominal: non tender, soft Rectal Exam: deferred Back Exam: normal inspection, no CVA tenderness Extremity: normal range of motion, non-tender, normal inspection, no pedal edema , no calf tenderness, normal capillary refill, other - see history of present illness Neurologic: emergency telecommunications dispatcher II-XII nml as tested, alert - nxious, oriented x 3 Skin Exam: normal color Comments: Vital Signs - 24 hr 08/29/17 08/29/17 08/29/17 07:40 08:05 08:34 Temperature 97.3 F L Pulse Rate [ 113 H 112 H Left Brachial] Respiratory 20 16 20 Rate Blood Pressure 158/78 130/93 [Left Arm] O2 Sat by Pulse 97 97 Oximetry Progress - Progress Progress: 08/29/17 09:09 the patient is a 67-year-old male presenting with left lateral chest wall pain since a fall yesterday. Part of his chest pain is likely from a mild bruising to the rib cage directly from the fall but I believe the bulk of his pain is coming from a left latissimus dorsi strain. The patient is going to be placed on tramadol. He can use [id number] anti-inflammatories as well. I 'm not going to use stronger pain medications or muscle relaxers due to his propensity for passing out. He needs to keep himself well-hydrated. He needs to take big deep breaths. He needs to make himself cough. He needs to move the left upper extremity. ER warnings were given for any worsening. He should follow-up with his primary care doctor early next week for reevaluation otherwise. x-rays failed to show any acute lung pathology and the rib series shows no evidence of any fracture. 08/29/17 09:11 Departure - Departure Clinical Impression: Acute chest wall pain, Fall at home, Orthostasis Disposition: Discharge to Home or Self Care Condition: Fair Departure Forms: ED Discharge - Pt. Copy, Patient Portal Self Enrollment Instructions: DI for Muscle Strain, DI for Syncope in Adults (Fainting) Diet: regular diet Activity: increase activity as tolerated Referrals: Kenroy Hernandez MD [Primary Care Provider] - 1-5 Days Prescriptions: Tramadol HCl 50 mg PO Q6HR PRN #30 tab PRN Reason: Moderate To Severe Pain Home Medications: Ambulatory Orders Lisinopril/Hctz 20-12.5 mg [Zestoretic 20-12.5 mg] 2 tablet PO DAILY 09/03/12 ALPRAZolam [Xanax] 0.25 mg PO DAILY PRN 08/15/17 Albuterol Sulfate Nebs [Proventil Nebs] 2.5 mg INH Q4HR PRN 08/15/17 Arformoterol Tartrate [Brovana] 15 mcg IN BID 08/15/17 Aspirin [Aspirin Childrens] 81 mg PO DAILY 08/15/17 Atorvastatin Calcium [Lipitor] 10 mg PO BEDTIME 08/15/17 Polyethylene Glycol 3350 [Miralax] 17 gm PO DAILY 08/15/17 Tiotropium Sweeny Monohydrate [Spiriva Respimat] 2 puff IN DAILY 08/15/17 Temazepam [Restoril] 15 mg PO BEDTIME PRN #10 cap 08/19/17 Tramadol HCl 50 mg PO Q6HR PRN #30 tab 08/29/17 Additional Instructions: the patient is a 67-year-old male presenting with left lateral chest wall pain since a fall yesterday. Part of his chest pain is likely from a mild bruising to the rib cage directly from the fall but I believe the bulk of his pain is coming from a left latissimus dorsi strain. The patient is going to be placed on tramadol. He can use [id number] anti-inflammatories as well. I 'm not going to use stronger pain medications or muscle relaxers due to his propensity for passing out. He needs to keep himself well-hydrated. He needs to take big deep breaths. He needs to make himself cough. He needs to move the left upper extremity. ER warnings were given for any worsening. He should follow-up with his primary care doctor early next week for reevaluation otherwise. x-rays failed to show any acute lung pathology and the rib series shows no evidence of any fracture. Fall precautions due to orthostasis given.
[2017-08-29 09:21] VITALS: BP 125/84; O2SAT 96
== END 2017-08-29 09:21 | disposition home or self-care (01) ==
LOC: ER 07:27
DX: R07.89 Other chest pain (principal); S29.012A Strain of muscle and tendon of back wall of thorax, initial encounter; R55 Syncope and collapse; J44.9 Chronic obstructive pulmonary disease, unspecified; I10 Essential (primary) hypertension; Z87.891 Personal history of nicotine dependence; W18.39XA Other fall on same level, initial encounter; Y92.000 Kitchen of unspecified non-institutional (private) residence as the place of occurrence of the external cause

== ENCOUNTER → 2018-03-05 | Outpatient (CLI) | payer MEDICARE, OTHER ==
--- NOTE | 2018-03-06 10:55 | CT ---
Procedure: CT LUNG SCREENING Exam Date: 03/05/2018. Ordering Provider: Gurmeet Block Clinical Indication: PERSONAL HISTORY OF TOBACCO DEPENDENCY This patient meets eligibility criteria for low-dose CT lung cancer screening. Comparison: None. Technique: Using a multislice scanner, sequential helical axial imaging was obtained in the thorax, 2.5 mm thickness, 2.5 mm separation, from the level of the thoracic inlet through the lung bases without IV contrast. A low dose protocol was utilized: CTDI: 1.76 mGy. 120. kVp. 45 mA. 2D sagittal and coronal reconstructed images, 6.0 mm thickness, were obtained. This exam was performed according to our departmental dose optimization program which includes use of automated exposure control, adjustment of the mA and/or kV according to patient size and/or use of iterative reconstruction technique. Nodule measurements under 10 mm are given as mean value of 3 axes diameters. FINDINGS: Lungs and large airways: Numerous blebs in a centrilobular distribution more numerous in the upper lung portillo compared to the bases. Scattered bulla are also present. Some of these are pleural-based in the upper lobes. Groundglass nodules approximately 4 mm on axial image 22 abutting the pleura. A larger groundglass nodule also abutting the pleura 11 x 8 mm on image 17. Subpleural calcified tooth-shaped nodule, 5 mm, lateral right middle lobe on image 76. 3 mm and 2 mm partially solid nodules or scars in the posterior left upper lobe on axial image 37. Scarring in the inferior lingula. No abnormal nodules, masses, or infiltrates.. Pleura: Minimal focal pleural thickening bilaterally with no effusion bilaterally no pneumothorax. Mediastinum and kal: evaluation limited by low dose technique and lack of IV contrast. Negative. Heart and great vessels: Coronary artery calcifications and/or stents. Atherosclerotic calcifications in the proximal brachiocephalic vessels, aortic arch, and descending thoracic aorta. Chest wall, lower neck, axillae: Evaluation also limited by same factors as described above. Unremarkable. Upper abdomen: Aortic calcifications. Osseous structures: Evaluation limited by low dose MIP technique. Minimal thoracic spondylosis. No blastic or lytic lesions. IMPRESSION: Centrilobular emphysematous changes more prevalent in the upper lung portillo than the bases. Groundglass nodule which may be associated with pleural thickening in the posterior right apex. 11 mm greatest diameter. Calcified nodule with small pleural extension in the right middle lobe. [address] lung screening follow-up according to [facility] Best Practice guidelines. Please see below for Lung RADS category and FOLLOW-UP.* *Lung RADS category CATEGORY 2- Nodules with a very low likelihood (less than 1%) of becoming a clinically active cancer due to size or lack of growth. Nodules: Solid or part solid nodule(s) less than 6mm, new solid nodule less than 4mm. Ground glass nodule(s) less than 20mm or unchanged or slow growing ground glass nodule 20mm or greater. Cat 3 or 4 nodule unchanged for 3 or more months. FOLLOW-UP: Continue annual screening with a Low Dose Chest CT in 12 months for re-evaluation. Electronically signed by: Bola Garcia MD 03/06/2018 10:54 AM [facility]
== END ==
LOC: CT 11:00
PROVIDERS: ATTEND Family Medicine
DX: Z87.891 Personal history of nicotine dependence (principal); R91.8 Other nonspecific abnormal finding of lung field

== ENCOUNTER → 2019-03-27 | Outpatient (CLI) | payer MEDICARE, OTHER | LOC: GMAJ 10:22 | PROVIDERS: ATTEND Family Medicine | DX: Z12.5 Encounter for screening for malignant neoplasm of prostate (principal) ==

== ENCOUNTER → 2019-06-05 | Outpatient (CLI) | payer MEDICARE, OTHER ==
--- NOTE | 2019-06-06 16:59 | CT ---
Procedure: CT LUNG SCREENING Exam Date: 06/05/2019. Ordering Provider: Gurmeet Block Clinical Indication: PERSONAL HISTORY OF TOBACCO USE . Current cigarette smoker. 25 pack years. This patient meets eligibility criteria for low-dose CT lung cancer screening. Comparison: Low-dose CT lung cancer screening examination February 2018. Technique: Using a multislice scanner, sequential helical axial imaging was obtained in the thorax, 2.5 mm thickness, 2.5 mm separation, from the level of the thoracic inlet through the lung bases without IV contrast. A low dose protocol was utilized for BMI less than 30: BMI: 26.4. CTDI: 1.76 mGy. 120. kVp. 45 mA. DLP less than 72 mGy-cm. 2D sagittal and coronal reconstructed images, 6.0 mm thickness, were obtained. This exam was performed according to our departmental dose optimization program which includes use of automated exposure control, adjustment of the mA and/or kV according to patient size and/or use of iterative reconstruction technique. Nodule measurements under 10 mm are given as mean value of 3 axes diameters. FINDINGS: Lungs and large airways: Subpleural densities in the posterior right apex associated with pleural densities on axial images 06/08 through are stable since the prior examination. Solid and groundglass appearance. Similar small subpleural densities posterior left apex. Diffuse bilateral blebs and some bulla and centrilobular distribution mostly in the upper lung portillo. Less prevalent at the base. Triangular-shaped nodule stable pleural parenchymal scarring which is partially nodular in the inferior lingula. Bibasilar pleural-parenchymal scarring is stable. No new nodules or masses. No new focal infiltrates. Abutting the lateral pleura of the right middle lobe is stable. Pleura and space: More thickening abutting the upper lobes and apices bilaterally. No change from the prior study. Mediastinum and kal: evaluation limited by low dose technique and lack of IV contrast. Stable small nodes. Heart and great vessels: Several brachiocephalic vessels in the thoracic aorta contain atherosclerotic calcification with minimal dilation of the descending thoracic aorta. Chest wall, lower neck, axillae: Evaluation also limited by same factors as described above. Stable lymph nodes. Upper abdomen: Evaluation limited by low-dose technique. Stable atherosclerotic calcifications. Surgical clips in the gallbladder fossa with no fluid. Osseous structures: Evaluation limited by low dose MIP technique. Stable spondylosis thoracic spine arthrosis at the manubriosternal joint sternoclavicular joints and shoulders. Old healed fractures of the lateral left fifth and sixth ribs. IMPRESSION: Emphysematous changes pleural parenchymal scars and pleural thickening. No acute infiltrate. No new nodules and no masses.. [facility] Best Practice Recommendations: please see below for Lung RADS category and FOLLOW-UP.* *Lung RADS category CATEGORY 2- Nodules with a very low likelihood (less than 1%) of becoming a clinically active cancer due to size or lack of growth. Nodules: Perifissural nodule(s) < 10 mm. (526mm3). Solid or part solid nodule(s) less than 6mm (113.1 mm3), new solid nodule less than 4mm (33.5 mm3). Ground glass nodule(s) less than 30mm (74855.2 mm3) or unchanged or slow growing ground glass nodule 30mm or greater. Cat 3 or 4 nodule unchanged for 3 or more months. FOLLOW-UP: Continue annual screening with a Low Dose Chest CT in 12 months for re-evaluation. Electronically signed by: Bola Garcia MD 06/06/2019 4:57 PM [facility]
== END ==
LOC: CT 10:00
PROVIDERS: ATTEND Family Medicine
DX: Z87.891 Personal history of nicotine dependence (principal); J43.9 Emphysema, unspecified; R91.8 Other nonspecific abnormal finding of lung field

== ENCOUNTER → 2020-05-20 | Outpatient (CLI) | payer MEDICARE, OTHER | LOC: GMAJ 11:28 | PROVIDERS: ATTEND Family Medicine | DX: Z12.5 Encounter for screening for malignant neoplasm of prostate (principal) ==